=== PATIENT | male | born 1930 | race Caucasian/White ===

== ENCOUNTER → 2017-04-14 | Outpatient (CLI) | payer OTHER ==
[~2017-04-14] MED LIST: ALTACE5 M1 PO; ASPIRIN EC81 M1 PO; AVADART PO; AVODART0.5 MG PO; CENTRUM COMPLE1 EACH PO; CENTRUM SILVER1 EAC4 PO; CIPROFLOXACIN500 M1 PO; COZAAR 50 MG TA50 M2 PO; DEMADEX20 MG PO; HYTRIN 5 M5 MG/1 CA1 PO; HYTRIN 5 M5 MG/1 CAP PO; HYTRIN10 MG PO; LIPITOR20 MG PO; LORTAB 5 MG/5001 TA1 PO; MINIPRIN81 MG PO; OMEGA-31000 M1 PO; OMEPRAZOLE 20 M20 M1 PO; TAMSULOSIN HCL0.4 M1 PO; TOPROL XL25 MG PO; XARELTO15 MG PO; XOPENEX 0.63 MG/3 M1 INH; XOPENEX HF1 UDINHALE; XOPENEX0.63 MG/3 INH
== END ==
LOC: CAT 12:34
DX: R10.9 Unspecified abdominal pain (principal); R19.7 Diarrhea, unspecified; R63.4 Abnormal weight loss

== ENCOUNTER 2017-08-25 12:54 | Inpatient (IN) | payer OTHER ==
[~2017-08-25] VITALS: Ht 170.2 cm; Wt 90.0 kg
--- NOTE | ~2017-08-25 | CATHLAB ---
[facility] [address] [place] [address] INVASIVE PROCEDURE REPORT Name: PHIL ELISE Room #: 217-P DIS IN ..#: [id number] Admission: 08/25/17 Attend Phys: Giovani Adler, Discharge: 08/27/17 Date of : 32 Date of Service: 08/31/17 1713 Report #: [id number] THIS REPORT FOR: //name// APPROVED REPORT Study performed: 08/26/2017 08:08:22 Patient Details Patient Status: In-Patient Room #: The patient is a 87 year-old male Event Personnel Giovani Adler [employer] Manager, La Nena Johnson RTR, Alvin Bryant Ceola RN RN, Karli White RTR Monitor, Ayden Bates Monitor Procedures Performed Left Heart Cath w/or w/o Coronaries [id number] [facility] Indication Chest pain Procedure Narrative The Right Groin^ was infiltrated with 1% Lidocaine subcutaneous anesthesia. A PINNACLE 6FR Sheath #[id number] sheath was inserted into the RFA^. Coronary angiography was performed using coronary diagnostic catheters. The right coronary system was accessed and visualized with a JR4 catheter. The left coronary system was accessed and visualized with a JL4 catheter. The left ventricle was accessed and visualized with a PIGTAIL catheter. Left ventriculogram was performed in 30 degree projection. Closure device was deployed with a 6 Fr MYNXGRIP 6/7F #[id number]. The patient tolerated the procedure well and there were no complications associated with the procedure. Intraoperative Conscious Sedation Sedation start time: 8.51 Case end Time: 9.07 Fentanyl 25 mcg Versed 1 mg Fluoro Time: 1.58 minutes Dose: DAP 3064.60 cGycm2 361 mGy Contrast Type and Amount: Visipaque 70 ml Hemodynamics The aortic pressure is 157/67 mmHg with a mean of 38 mmHg. The left [facility] [address] [place] [address] INVASIVE PROCEDURE REPORT Name: PHIL ELISE Room #: 217-P [facility] IN M.R.#: [id number] Admission: 08/25/17 Attend Phys: Giovani Adler, Discharge: 08/27/17 Date of : 32 Date of Service: 08/31/17 1713 Report #: [id number] ventricular pressure is 147/8 mmHg with a mean of mmHg. The left ventricular end diastolic pressure is 17 mmHg. Conclusion #1 normal left ventricular size ejection fraction mildly reduced 50% range #2 left main free of disease giving rise to LAD and circumflex #3 LAD mildly disease explain around the apex #4 circumflex OM with mild disease #5 dominant right with mild irregularities #6 Right renal artery with mild disease 20-30% #7 left renal artery with a 40% irregularity at the ostium <ELECTRONICALLY SIGNED> By: Giovani Adler MD, FAC 08/31/171712 12 12 Giovani Adler MD, FACC /INF
--- NOTE | ~2017-08-25 | D ---
[facility] [place] [address] DISCHARGE SUMMARY Name: PHIL ELISE Room #: 217-P [facility] IN M.R.#: [id number] Admission: 08/25/17 Attend Phys: Giovani Adler MD, Discharge: 08/27/17 Date of : 32 Report #: [id number] THIS REPORT FOR: //name// CC: Giovani Adler [facility] COURSE: The patient is an 87-year-old male who was admitted from the office with what sounds like classic accelerating anginal pattern, some dyspnea and shortness of breath. He has a history of atrial fibrillation, paroxysmal and is anticoagulated. That was held and he subsequently was taken to the catheterization lab. There was mild progression of 3-vessel coronary disease. He had prior stent, but there was no indication for an intervention. He has been moderately bradycardic here in the 40s. I will discontinue the metoprolol. His baseline creatinine is around 1.8 to 1.9 and that has been stable. He tolerated the procedure well. He is up and ambulating and feeling well. We will discharge him back to home on Lipitor 20; Xarelto 15, restart tonight; torsemide 20; Xopenex and multivitamins. I will discontinue the metoprolol. I will also discharge him on his losartan, which was held. No lifting for 48 hours and lying in tub, Jacuzzi or baca for a week. I suspect possibly some of his symptoms were due to his bradydysrhythmia, which I hope will improve, probably exhibiting some early sick sinus syndrome issues. Blood pressure and cholesterol are well controlled. His creatinine had been elevated, but at his baseline. DISCHARGE DIAGNOSES: 1. Coronary artery disease. Repeat catheterization. No intervention. 2. Bradycardia. Discontinue beta jimy. 3. Chronic kidney disease stage 4. 4. Hypertension. 5. Hypercholesterolemia. 6. History of left ventricular hypertrophy with diastolic dysfunction (echo performed in the office 08/24/2017). RECOMMENDATIONS AND PLAN: As described above. Some relative fluid and sodium restriction. Would continue the medications as I described, with the exception of discontinuing Toprol. Followup was arranged for him in 3 months in my office. By: 1213 1250 Giovani Adler MD, FACC /nt
[~2017-08-25 12:54] MED LIST changes: -DEMADEX20 MG PO; -XARELTO15 MG PO
[2017-08-25 13:19] VITALS: BP 142/74
[2017-08-25] MEDS ORDERED: XARELTO15 MG PO (14:07)
[2017-08-25] MEDS ORDERED: DEMADEX20 MG PO (14:07)
[2017-08-25 14:12] LABS: MCH 32.1 pg (26.0-34.0); MCHC 34.3 g/dL (28.0-37.0); MCV 93.5 fL (80.0-100.0); RBC 3.74 mil/uL (4.50-6.00); WBC 5.6 thou/uL (4.0-11.0)
[2017-08-25 14:25] LABS: ALBUMIN 3.8 g/dL (3.4-5.0); CALCIUM 9.6 mg/dL (8.5-10.1); CREATININE 1.9 mg/dL (0.7-1.3); POTASSIUM 4.2 mmol/L (3.5-5.1); TOTAL BILIRUBIN 0.7 mg/dL (<0.1-1.0); TOTAL PROTEIN 7.1 g/dL (6.4-8.2)
[2017-08-25 15:50] VITALS: BP 158/78
[2017-08-25 19:09] VITALS: BP 140/72
[2017-08-26 03:15] VITALS: BP 136/71
[2017-08-26 05:10] LABS: HEMATOCRIT 31.2 % (42.0-52.0); HEMOGLOBIN 10.9 gm/dL (14.0-18.0); MCH 32.7 pg (26.0-34.0); MCHC 34.9 g/dL (28.0-37.0); MCV 93.8 fL (80.0-100.0); RBC 3.33 mil/uL (4.50-6.00)
[2017-08-26 05:18] LABS: CALCIUM 8.6 mg/dL (8.5-10.1); CREATININE 1.8 mg/dL (0.7-1.3); POTASSIUM 4.2 mmol/L (3.5-5.1)
[2017-08-26 16:00] VITALS: BP 165/77
[2017-08-26 20:04] VITALS: BP 139/59
[2017-08-27 03:50] VITALS: BP 146/71
[2017-08-27 07:42] VITALS: BP 148/71
[2017-08-27 12:01] VITALS: BP 131/60
[2017-08-27 12:18] VITALS: BP 131/60
== END 2017-08-27 12:50 | disposition home or self-care (01) | DRG 287 ==
LOC: 2N 12:54
PROVIDERS: Internal Medicine Cardiovascular Disease; Nurse Practitioner Gerontology
PROC: 4A023N7 Measurement of Cardiac Sampling and Pressure, Left Heart, Percutaneous Approach (ICD-10-PCS; principal; 2017-08-25)
PROC: B211YZZ Fluoroscopy of Multiple Coronary Arteries using Other Contrast (ICD-10-PCS; principal; 2017-08-25)
PROC: B215YZZ Fluoroscopy of Left Heart using Other Contrast (ICD-10-PCS; principal; 2017-08-25)
DX: I25.10 Atherosclerotic heart disease of native coronary artery without angina pectoris (principal); N18.4 Chronic kidney disease, stage 4 (severe); E78.00 Pure hypercholesterolemia, unspecified; I48.0 Paroxysmal atrial fibrillation; I12.9 Hypertensive chronic kidney disease with stage 1 through stage 4 chronic kidney disease, or unspecified chronic kidney disease; E78.5 Hyperlipidemia, unspecified; Z96.653 Presence of artificial knee joint, bilateral; Z95.5 Presence of coronary angioplasty implant and graft; Z90.49 Acquired absence of other specified parts of digestive tract
CPT/HCPCS: 10797

== ENCOUNTER 2018-10-06 09:27 | Emergency (ER) | payer OTHER ==
[~2018-10-06] VITALS: Ht 172.7 cm; Wt 85.7 kg
[~2018-10-06 09:27] MED LIST changes: +DEMADEX20 MG PO; +XARELTO15 MG PO
[2018-10-06] MEDS ORDERED: XOPENEX0.31 MG/3 INH (09:46)
[2018-10-06] MEDS ORDERED: LOPRESSOR25 PO (09:46)
[2018-10-06 09:56] LABS: URINE BILIRUBIN NEGATIVE (Negative); URINE BLOOD 3+ (Negative); URINE COLOR BROWN; URINE GLUCOSE-RANDOM* 3+ (Negative); URINE KETONES NEGATIVE (Negative); URINE LEUKOCYTES 1+ (Negative); URINE NITRITE POSITIVE (Negative); URINE PROTEIN (DIPSTICK) 2+ (Negative)
[2018-10-06 09:57] LABS: URINE CLARITY CLOUDY
[2018-10-06 10:01] LABS: BACTERIA >30 Many /HPF (None Seen); CASTS None Seen /LPF (None Seen); CRYSTALS None Seen /LPF (None Seen); SQUAMOUS None Seen /LPF (0-3)
[2018-10-06 10:01] LABS: ABSOLUTE NEUTROPHILS 4.8 thou/uL (1.4-8.2); BASOPHILS 0.5 % (0.0-2.0); EOSINOPHILS 1.4 % (0.0-3.0); HEMATOCRIT 33.9 % (42.0-52.0); HEMOGLOBIN 11.6 gm/dL (14.0-18.0); LYMPHOCYTES 14.5 % (24.0-44.0); MCH 31.5 pg (26.0-34.0); MCHC 34.2 g/dL (28.0-37.0); MCV 92.3 fL (80.0-100.0); MONOCYTES 6.2 % (1.0-8.0); PLATELET COUNT 203 thou/uL (150-400); POLYS 77.4 % (36.0-66.0); RBC 3.68 mil/uL (4.50-6.00); RDW 14.6 % (10.5-14.5); WBC 6.2 thou/uL (4.0-11.0)
[2018-10-06 10:02] LABS: URINE RBC >20 Many /HPF (0-2); URINE WBC >25 Many /HPF (0-5)
[2018-10-06 10:10] LABS: CALCIUM 8.8 mg/dL (8.5-10.1); CREATININE 1.7 mg/dL (0.7-1.3); POTASSIUM 4.4 mmol/L (3.5-5.1)
[2018-10-06 10:17] LABS: TOTAL BILIRUBIN 0.4 mg/dL (<0.1-1.0); TOTAL PROTEIN 6.7 g/dL (6.4-8.2)
[2018-10-06] MEDS ORDERED: CEFDINIR300 MG PO (11:05)
[2018-10-06] MEDS ORDERED: FLOMAX0.4 MG PO (11:05)
[2018-10-06 11:21] VITALS: BP 142/59
== END 2018-10-06 11:42 | disposition home or self-care (01) ==
LOC: ER 09:27
PROVIDERS: Emergency Medicine
DX: N39.0 Urinary tract infection, site not specified (principal); I10 Essential (primary) hypertension; E78.5 Hyperlipidemia, unspecified; Z87.891 Personal history of nicotine dependence; Z96.653 Presence of artificial knee joint, bilateral; Z95.5 Presence of coronary angioplasty implant and graft; Z90.49 Acquired absence of other specified parts of digestive tract

== ENCOUNTER → 2019-11-13 | Outpatient (CLI) | payer OTHER ==
[~2019-11-13] MED LIST changes: +CEFDINIR300 MG PO; +FLOMAX0.4 MG PO; +LOPRESSOR25 PO; +XOPENEX0.31 MG/3 INH
== END ==
LOC: SJCVCIMAG 07:13
PROVIDERS: ATTEND Internal Medicine Cardiovascular Disease
DX: I35.1 Nonrheumatic aortic (valve) insufficiency (principal); I45.2 Bifascicular block; I44.0 Atrioventricular block, first degree; R94.31 Abnormal electrocardiogram [ECG] [EKG]; I25.10 Atherosclerotic heart disease of native coronary artery without angina pectoris; I48.0 Paroxysmal atrial fibrillation; I13.10 Hypertensive heart and chronic kidney disease without heart failure, with stage 1 through stage 4 chronic kidney disease, or unspecified chronic kidney disease; N18.3 Chronic kidney disease, stage 3 (moderate); I65.23 Occlusion and stenosis of bilateral carotid arteries; I70.1 Atherosclerosis of renal artery; I48.91 Unspecified atrial fibrillation; D68.59 Other primary thrombophilia; E78.00 Pure hypercholesterolemia, unspecified; Z82.49 Family history of ischemic heart disease and other diseases of the circulatory system; Z79.899 Other long term (current) drug therapy; Z87.891 Personal history of nicotine dependence

== ENCOUNTER → 2020-08-08 | Outpatient (CLI) | payer OTHER | LOC: CAT 08:18 | PROVIDERS: ATTEND Nurse Practitioner | DX: K57.30 Diverticulosis of large intestine without perforation or abscess without bleeding (principal); N40.0 Benign prostatic hyperplasia without lower urinary tract symptoms ==

== ENCOUNTER → 2020-11-12 | Outpatient (CLI) | payer OTHER | LOC: SJCVC 10:28 | PROVIDERS: ATTEND Internal Medicine Cardiovascular Disease | DX: R94.31 Abnormal electrocardiogram [ECG] [EKG] (principal); I49.3 Ventricular premature depolarization; I45.2 Bifascicular block; I25.10 Atherosclerotic heart disease of native coronary artery without angina pectoris; I65.23 Occlusion and stenosis of bilateral carotid arteries; E78.00 Pure hypercholesterolemia, unspecified; I12.9 Hypertensive chronic kidney disease with stage 1 through stage 4 chronic kidney disease, or unspecified chronic kidney disease; E11.22 Type 2 diabetes mellitus with diabetic chronic kidney disease; N18.31 Chronic kidney disease, stage 3a; I48.0 Paroxysmal atrial fibrillation; I70.1 Atherosclerosis of renal artery; D68.59 Other primary thrombophilia; Z79.899 Other long term (current) drug therapy; Z87.891 Personal history of nicotine dependence; Z88.8 Allergy status to other drugs, medicaments and biological substances ==